=== PATIENT | female | born 1955 | race Caucasian/White ===

== ENCOUNTER → 2017-08-17 | Outpatient (CLI) | payer OTHER ==
--- NOTE | 2017-08-17 15:28 | RADIOLOGY IMAGING REPORT ---
FACILITY: [facility] PATIENT NAME: PHILL REY : [id number] MR: [id number] V: [id number] EXAM DATE: ORDERING PHYSICIAN: JUAN CARLOS DEAN TECHNOLOGIST: Anna Bess PROCEDURE:BILATERAL DIGITAL SCREENING MAMMOGRAM WITH CAD ASSISTED INTERPRETATION & 3D TOMOSYNTHESIS COMPARISON:Prior mammograms 08/16/16, 08/10/15, 08/03/14, 08/01/13, 06/13/12, 07/27/11 INDICATIONS:screening FINDINGS: A small to moderate amount of fibroglandular tissue is seen throughout the breasts. The parenchymal pattern has remained stable allowing for difference in mammographic technique & patient positioning. There is no evidence of malignant appearing mass, malignant appearing calcifications or other secondary sign of malignancy in either breast. DIAGNOSTIC CATEGORY 1--NEGATIVE. RECOMMENDATIONS: ROUTINE MAMMOGRAM AND CLINICAL EVALUATION. IMPRESSION: BIRADS 1: Negative No significant abnormality is seen. Dictated by: Alexa Mazariegos M.D. on 08/17/2017 at 10:02 Transcribed by: ATUL on 08/17/2017 at 10:47 Approved by: Alexa Mazariegos M.D. on 08/17/2017 at 15:27 [facility]
== END ==
LOC: MAMO 00:04
PROVIDERS: ATTEND Nurse Practitioner Psychiatric/Mental Health
DX: Z12.31 Encounter for screening mammogram for malignant neoplasm of breast (principal)
CPT/HCPCS: 77063; 77067

== ENCOUNTER → 2018-11-05 | Outpatient (CLI) | payer OTHER ==
--- NOTE | 2018-11-06 11:10 | RADIOLOGY IMAGING REPORT ---
FACILITY: [facility] [place] PATIENT NAME: PHILL REY : [id number] MR: [id number] V: [id number] EXAM DATE: ORDERING PHYSICIAN: JUAN CARLOS DEAN TECHNOLOGIST: Anna Bess PROCEDURE: BILATERAL DIGITAL SCREENING MAMMOGRAM WITH CAD ASSISTED INTERPRETATION & 3D TOMOSYNTHESIS REASON FOR STUDY: Screening. FAMILY HISTORY OF BREAST CANCER: None. BREAST PROCEDURES/TREATMENTS: None. COMPARISON: Prior mammograms 08/17/17, 08/16/16, 08/10/15, 08/03/14, 08/01/13, 06/13/12. VIEWS OBTAINED: 2D & 3D full field CC & MLO. BREAST DENSITY: There are scattered areas of fibroglandular density throughout the breasts. MAMMOGRAM FINDINGS: The parenchymal pattern has remained stable allowing for difference in mammographic technique & patient positioning. IMPRESSION: BIRADS 1: Negative. No significant abnormality is seen. DIAGNOSTIC CATEGORY 1--NEGATIVE. RECOMMENDATIONS: ROUTINE MAMMOGRAM AND CLINICAL EVALUATION. Dictated by: Alexa Mazariegos M.D. on 11/05/2018 at 17:26 Transcribed by: ATUL on 11/06/2018 at 8:32 Approved by: Alexa Mazariegos M.D. on 11/06/2018 at 11:10 [facility]
== END ==
LOC: MAMO 10-31 13:31
PROVIDERS: ATTEND Nurse Practitioner Psychiatric/Mental Health
DX: Z12.31 Encounter for screening mammogram for malignant neoplasm of breast (principal)
CPT/HCPCS: 77063; 77067

== ENCOUNTER 2019-01-17 01:37 | Day surgery (SDC) | payer OTHER ==
[~2019-01-17] VITALS: Ht 152.4 cm; Wt 67.1 kg
[~2019-01-17 01:37] MED LIST: ASPI-1471 PO; BUTA1CAP7 PO; CHOL10005 PO; ESTR0.62 PO; ESTR42.5 TOP; KRIL1CAP29 PO; MULT1CAP59 PO; UBID50TA3 PO; VITA1CAP46 PO; VITA200C8 PO; ZOLP-1 PO
[2019-01-17] MEDS ORDERED: MIDAZOLAM 2 MG/2 ML VIAL IVP PRN (07:10)
[2019-01-17 07:11] VITALS: BP 151/78
[2019-01-17] MEDS ORDERED: NORMOSOL R SOLN(*) 1000 ML BAG 1,000 ML IV PRN (07:40)
[2019-01-17] MEDS ORDERED: LIDOCAINE/SOD BICARB 8.4% SYR ID ONE (07:40)
[2019-01-17 08:44] VITALS: BP 99/55
--- NOTE | 2019-01-17 08:58 | Short(Outpt) Discharge Summary ---
Discharge Summary Reason for Hosp/Final Diag: (1) Encounter for screening colonoscopy Hospital Course & Plan: pt presented for colonoscopy. she tolerated the procedure well and will be discharged home when criteria met. Departure Discharge to: Home Discharge Instructions Home Meds Reported Medications Krill/[place]-3/Dha/Epa/Lipids (Krill Oil 350 mg Softgel) 350 Mg-90 Mg-24 Mg-50 Mg-130 Mg Capsule, 1 CAP PO QDAY 01/13/19 Aspirin (ASPIR 81) 81 Mg Tablet.dr, 81 MG PO QDAY, TAB 01/13/19 Estrogens, Conjugated (Premarin) 0.625 Mg/Gram Cream.appl, 0.625 MG TOP QWEEKF 01/13/19 Vitamin E (Dl,Tocopheryl Acet) (VITAMIN E) 200 Unit Capsule, 400 UNIT PO, CAPSULE 11/22/18 Ubidecarenone (COQ10) 50 Mg Tab.chew, 100 MG PO QDAY, TAB.CHEW 11/22/18 Vitamin B Complex (VITAMIN B COMPLEX) 1 Each Capsule, 1 EACH PO, CAPSULE 11/22/18 Cholecalciferol (Vitamin D3) (VITAMIN D3) 1,000 Unit Tablet, 8000 UNIT PO, TAB 11/22/18 Multivitamin (MULTIVITAMINS) 1 Each Capsule, 1 EACH PO, CAPSULE 11/22/18 Butalbit/Acetamin/Caff/Codeine (LFNENI-[id number]-[id number]-CODEIN) 1 Each Capsule, 1-2 EACH PO PRN, CAPSULE 11/22/18 Zolpidem Tartrate (AMBIEN) 5 Mg Tablet, 1-2 TAB PO QHS, TAB 11/22/18 Discontinued Reported Medications Estrogens, Conjugated 0.625 Mg Tab (PREMARIN 0.625 MG TAB) 0.625 Mg Tablet, 0.625 MG PO QDAY, TAB 11/22/18 Diet: Regular Activity: As Tolerated Special Instructions: repeat colonoscopy in 10 yrs. NADER WOODS Jan 17, 2019 08:58
[2019-01-17 09:00] VITALS: BP 107/69
--- NOTE | 2019-01-17 09:00 | NUR ---
DR WOODS INTO SEE PT AND HER . REPORTS CLEAR COLONOSCOPY. REPEAT IN 10 YEARS.
[2019-01-17 09:02] VITALS: BP 108/53
[2019-01-17 09:05] VITALS: BP 100/74
== END 2019-01-17 09:17 | disposition home or self-care (01) ==
LOC: OR 01:37
PROVIDERS: ATTEND Surgery
DX: K92.2 Gastrointestinal hemorrhage, unspecified (principal)
CPT/HCPCS: 00811; 45378; J2250